=== PATIENT | male | born 1970 | race Caucasian/White ===

== ENCOUNTER 2020-09-12 14:00 | Inpatient (IN) | payer SELFPAY ==
[~2020-09-12] VITALS: Ht 180.3 cm; Wt 75.9 kg
--- NOTE | 2020-09-12 14:13 | PHYS DOC ---
Past History Past Medical History: CAD, Heart Disease, Hypertension Smoking: Cigarettes Alcohol Use: Rarely Drug Use: Amphetamine, Cocaine, Heroin, Marijuana, Methamphetamine Adult General Chief Complaint Chief Complaint: CHEST PAIN HPI HPI Patient is a 50yo male presenting for chest pain. This is an acute on chronic problem. Onset was ~6 months ago without inciting event or trauma. Nothing known makes better, activity makes worse. Pain is deep in left breast and radiates to LUE causing numbness. Episodes last <1min but take his breath away when they occur. These episodes wax and wane since onset, typically admits <3 episodes daily but admits he has had increased frequency of episodes daily currently averaging ~5-10 daily for past 1 month. He has been taking 81mg ASA intermittently and using a friend's Coreg 25mg BID when he can "get my hands on it". 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 He admits positive cardiac family history of CAD, has never passed out which activity/exertion, had x3 stents placed ~7 years ago in [place] to unknown heart vessels. He does admit to history of IVDU. Admits using "everything" such as meth, heroin and cocaine in the past, has not used anything in +10 years, admits social ETOH use, daily cigarette smoking and occasional THC only. Review of Systems Review of Systems Fourteen body systems of review of systems have been reviewed. See HPI for pertinent positives and negative responses, other [place] all other systems are negative, non-pertinent or non-contributory Physical Exam Physical Exam Constitutional: Well developed, well nourished, no acute distress, non-toxic appearance. HENT: Normocephalic, atraumatic, bilateral external ears normal, oropharynx dry with poor dentition, no oral exudates, nose normal. Eyes: PERRLA, EOMI, conjunctiva normal, no discharge. Neck: Normal range of motion, no tenderness, supple, no stridor. Cardiovascular: Heart rate regular, sinus rhythm, no rubs or gallops, chest wall non-tender to palpation Lungs & Thorax: Bilateral breath sounds clear to auscultation Abdomen: Bowel sounds normal, soft, no tenderness, no masses, no pulsatile masses. Nonsurgical abdomen, no peritoneal signs Skin: Warm, dry, no erythema, no rash. Back: No tenderness, no CVA tenderness. Extremities: No tenderness, no cyanosis, no clubbing, ROM intact, no edema. Pulses 2+ in bilateral UEs Neurologic: Alert and oriented X 3, grossly normal motor & sensory function, no focal deficits noted. Psychologic: Affect normal, judgement normal, anxious mood Current Patient Data Vital Signs Vital Signs Date Time Temp Pulse Resp B/P (MAP) Pulse Ox O2 Delivery O2 Flow Rate FiO2 09/12/20 19:40 Room Air 09/12/20 17:34 69 20 99 09/12/20 16:55 97.7 187/99 (128) Lab Results Laboratory Tests Test 09/12/20 14:23 09/12/20 15:38 White Blood Count 9.3 x10^3/uL (4.0-11.0) Red Blood Count 4.71 x10^6/uL (4.30-5.70) Hemoglobin 14.5 g/dL (13.0-17.5) Hematocrit 43.6 % (39.0-53.0) Mean Corpuscular Volume 93 fL (79-100) Mean Corpuscular Hemoglobin 31 pg (25-35) Mean Corpuscular Hemoglobin Concent 33 g/dL (31-37) Red Cell Distribution Width 13.9 % (11.5-14.5) Platelet Count 242 x10^3/uL (140-400) Neutrophils (%) (Auto) 65 % (31-73) Lymphocytes (%) (Auto) 25 % (24-48) Monocytes (%) (Auto) 7 % (0-9) Eosinophils (%) (Auto) 2 % (0-3) Basophils (%) (Auto) 1 % (0-3) Neutrophils # (Auto) 6.1 x10^3uL (1.8-7.7) Lymphocytes # (Auto) 2.3 x10^3/uL (1.0-4.8) Monocytes # (Auto) 0.7 x10^3/uL (0.0-1.1) Eosinophils # (Auto) 0.2 x10^3/uL (0.0-0.7) Basophils # (Auto) 0.1 x10^3/uL (0.0-0.2) Sodium Level 140 mmol/L (136-145) Potassium Level 3.7 mmol/L (3.5-5.1) Chloride Level 102 mmol/L (98-107) Carbon Dioxide Level 29 mmol/L (21-32) Anion Gap 9 (6-14) Blood Urea Nitrogen 18 mg/dL (8-26) Creatinine 1.5 mg/dL (0.7-1.3) Estimated GFR (Cockcroft-Gault) 49.7 BUN/Creatinine Ratio 12 (6-20) Glucose Level 138 mg/dL (70-99) Calcium Level 9.2 mg/dL (8.5-10.1) Total Bilirubin 0.8 mg/dL (0.2-1.0) Aspartate Amino Transf (AST/SGOT) 9 U/L (15-37) Alanine Aminotransferase (ALT/SGPT) 16 U/L (16-63) Alkaline Phosphatase 110 U/L (46-116) Troponin I Quantitative 0.065 ng/mL (0-0.055) WT-Ovl-I-Type Natriuretic Peptide 1113 pg/mL (0-124) Total Protein 7.0 g/dL (6.4-8.2) Albumin 3.7 g/dL (3.4-5.0) Albumin/Globulin Ratio 1.1 (1.0-1.7) Urine Collection Type Unknown Urine Color Yellow Urine Clarity Clear Urine pH 6.5 Urine Specific Dixon 1.025 Urine Protein 100 mg/dl (NEG-TRACE) Urine Glucose (UA) 100 mg/dL (NEG) Urine Ketones (Stick) Neg mg/dL (NEG) Urine Blood Neg (NEG) Urine Nitrite Neg (NEG) Urine Bilirubin Neg (NEG) Urine Urobilinogen Dipstick 1.0 mg/dL (0.2 mg/dL) Urine Leukocyte Esterase Neg (NEG) Urine RBC 0 /HPF (0-2) Urine WBC Rare /HPF (0-4) Urine Squamous Epithelial Cells None /LPF Urine Bacteria 0 /HPF (0-FEW) Urine Opiates Screen Neg (NEG) Urine Methadone Screen Neg (NEG) Urine Barbiturates Neg (NEG) Urine Phencyclidine Screen Neg (NEG) Urine Amphetamine/Methamphetamine Neg (NEG) Urine Benzodiazepines Screen Neg (NEG) Urine Cocaine Screen Neg (NEG) Urine Cannabinoids Screen Pos (NEG) Urine Ethyl Alcohol Neg (NEG) EKG EKG EKG ordered and interpreted by myself at 1412 hrs. as sinus rhythm at 72 bpm, u nremarkable intervals, left axis deviation with left ventricular strain, nonspecific T wave changes in leads III and aVF, T wave inversions noted in leads V4 and V5, no STEMI Radiology/Procedures Radiology/Procedures PROCEDURE: PORTABLE CHEST 1V AP chest. HISTORY: Chest pain AP view was taken of the chest. Lungs are clear. Heart is normal in size. There is no pleural effusion. IMPRESSION: 1. No acute chest disease. Electronically signed by: Rl Lord MD (09/12/2020 2:49 PM) [facility] [place] Heart Score HEART Score for Chest Pain: HEART Score for Chest Pain Response (Comments) Value History Highly Suspicious [address] Depression 2 Age >45 - < 65 1 Risk Factors >3 Risk Factors or Hx CAD 2 Troponin >1-<3x Normal Limit 1 Total 8 Risk Factors: Risk Factors: DM, Current or recent (<one month) smoker, HTN, HLP, family history of CAD, obesity. Risk Scores: Risk Factors: DM, Current or recent (<one month) smoker, HTN, HLP, family history of CAD, obesity. Course & Med Decision Making Course & Med Decision Making Airway patient, breathing non-labored, vitals showing marked HTN Comprehensive physical exam obtained and subsequent diagnostic workup performed. Pertinent Labs and Imaging studies reviewed. (See chart for details) Discussed most likely diagnosis of HTN Emergency given presenting BP and fin dings of cardiac ischemia (inferior t-wave inversions and lateral V4 and V5 ST depression). Elevated trop likely due to this. 162mg ASA and x1 SL Nitro administered on arrival with improvement in patient's BP. Cardiology contacted and case discussed. They agreed with management so far. Lovenox 1mg/kg administered. Patient to be started on high-intensity statin, b- rema and daily 81mg aspirin. They will see him tomorrow morning Dr. Fletcher (hospitalist) contacted and he agreed to admission under his care for continued cardiac observation with serial trop & ECGs in addition to BP control as indicated I updated patient on plan of care and he was amenable to admission. All questions and concerns addressed prior to ED departure to [place] in stable condition Zurdo Disclaimer Zurdo Disclaimer This electronic medical record was generated, in whole or in part, using a voice recognition dictation system. Departure Departure: Impression: Primary Impression: Hypertensive emergency Additional Impressions: Elevated troponin CAD (coronary artery disease) History of illicit drug use Disposition: ADMITTED INPT THIS HOSP Admitting Physician: Anupam Fletcher Condition: STABLE Referrals: PCP,NO (PCP) Problem Qualifiers JOHNNY VELASCO DO Sep 12, 2020 14:12
[2020-09-12] MEDS ORDERED: ASPIRIN CHEWABLE 81 MG TABLET. PO ONE (14:30)
[2020-09-12] MEDS ORDERED: NITROGLYCERIN SUBLINGUAL 0.4 MG BOTTLE OF 25. SL PRN ×2 (14:45→16:00)
[2020-09-12 14:48] LABS: BASO # 0.1 x10^3/uL (0.0-0.2); BASO % 1 % (0-3); EOS # 0.2 x10^3/uL (0.0-0.7); EOS % 2 % (0-3); HEMATOCRIT 43.6 % (39.0-53.0); HEMOGLOBIN 14.5 g/dL (13.0-17.5); LYMPH # 2.3 x10^3/uL (1.0-4.8); LYMPH % 25 % (24-48); MEAN CORPUSCULAR HEMOGLOBIN 31 pg (25-35); MEAN CORPUSCULAR HGB CONC 33 g/dL (31-37); MEAN CORPUSCULAR VOLUME 93 fL (79-100); MONO # 0.7 x10^3/uL (0.0-1.1); MONO % 7 % (0-9); NEUT # 6.1 x10^3uL (1.8-7.7); NEUT % 65 % (31-73); PLATELET COUNT 242 x10^3/uL (140-400); RED BLOOD COUNT 4.71 x10^6/uL (4.30-5.70); RED CELL DISTRIBUTION WIDTH 13.9 % (11.5-14.5); WHITE BLOOD COUNT 9.3 x10^3/uL (4.0-11.0)
--- NOTE | 2020-09-12 14:52 | RAD ---
AP chest. HISTORY: Chest pain AP view was taken of the chest. Lungs are clear. Heart is normal in size. There is no pleural effusion. IMPRESSION: 1. No acute chest disease. Electronically signed by: Rl Lord MD (09/12/2020 2:49 PM) [facility]
[2020-09-12 14:57] LABS: CALCIUM 9.2 mg/dL (8.5-10.1); CREATININE 1.5 mg/dL (0.7-1.3); GFR 49.7; POTASSIUM 3.7 mmol/L (3.5-5.1)
[2020-09-12 15:11] LABS: ALBUMIN 3.7 g/dL (3.4-5.0); ALBUMIN/GLOBULIN RATIO 1.1 (1.0-1.7); TOTAL BILIRUBIN 0.8 mg/dL (0.2-1.0)
[2020-09-12] MEDS ORDERED: ENOXAPARIN ** NOTE DOSE ** SYRINGE SQ ONE (15:30)
[2020-09-12 16:04] LABS: BARBITURATES NEG (NEG); BENZODIAZEPINES NEG (NEG); CANNABINOIDS POS (NEG); COCAINE NEG (NEG); METHADONE NEG (NEG); OPIATES NEG (NEG); PHENCYCLIDINE NEG (NEG)
[2020-09-12 16:06] LABS: BILIRUBIN,URINE NEG (NEG); CLARITY,URINE CLEAR; COLOR,URINE YELLOW; GLUCOSE,URINE 100 mg/dL (NEG); NITRITE,URINE NEG (NEG)
[2020-09-12 16:07] LABS: BACTERIA,URINE 0 /HPF (0-FEW); RBC,URINE 0 /HPF (0-2); WBC,URINE RARE /HPF (0-4)
[2020-09-12 16:08] LABS: AMPHETAMINE/METHAMPHETAMINE NEG (NEG)
--- NOTE | 2020-09-12 16:46 | EKG ---
[address] [address] Test Date: 2020-09-12 Test Time: 14:08:16 Pat Name: RAMÍREZ ROCHA Department: Room: 117 A Gender: M Telephone Operator: : 1970 Requested By: JOHNNY VELASCO Order Number: [id number] Reading MD: Jose Blanchard Measurements Intervals [place] Rate: 72 P: 41 [place]: 160 QRS: -11 QRSD: 92 T: -22 QT: 360 QTc: 396 Interpretive Statements SINUS RHYTHM LEFT ATRIAL ABNORMALITY LEFTWARD AXIS ST & T ABNORMALITY, CONSIDER INFERIOR ISCHEMIA OR LEFT VENTRICULAR STRAIN ABNORMAL ECG RI6.02 No previous ECG available for comparison Electronically Signed On 09-15-2020 10:48:49 SUCTION OPERATOR by Jose Blanchard
[2020-09-12 16:55] VITALS: BP 187/99
[2020-09-12] MEDS: CARVEDILOL 12.5 MG TABLET PO SCH (17:00)
[2020-09-12] MEDS ORDERED: CARVEDILOL 12.5 MG TABLET PO SCH (17:00)
[2020-09-12 19:20] VITALS: BP 155/90
[2020-09-12] MEDS ORDERED: ATORVASTATIN CALCIUM 20 MG TABLET PO SCH ×2 (21:00)
[2020-09-12 23:36] VITALS: BP 175/101
[2020-09-13 05:10] VITALS: BP 171/103
--- NOTE | 2020-09-13 06:59 | EKG ---
[address] [address] Test Date: 2020-09-13 Test Time: 06:53:02 Pat Name: RAMÍREZ ROCHA Department: Room: 117 A Gender: M Room Inspector: : 1970 Requested By: JOHNNY VELASCO Order Number: [id number] Reading MD: Jose Blanchard Measurements Intervals [place] Rate: 43 P: 27 [place]: 168 QRS: -7 QRSD: 92 T: -18 QT: 470 QTc: 398 Interpretive Statements SINUS BRADYCARDIA LEFTWARD AXIS T ABNORMALITY IN ANTERIOR LEADS INFEROLATERAL LEADS ABNORMAL ECG Electronically Signed On 09-15-2020 10:37:47 PEACE OFFICER by Jose Blanchard
[2020-09-13] MEDS: CARVEDILOL 12.5 MG TABLET PO SCH (08:00)
[2020-09-13] MEDS ORDERED: ASPIRIN ENTERIC COATED 81 MG TABLET.DR. PO SCH (08:00)
[2020-09-13 08:16] VITALS: BP 171/103
[2020-09-13] MEDS ORDERED: ISOSORBIDE MONONITRATE ER 30 MG TAB.ER.24H PO SCH ×2 (09:00)
--- NOTE | 2020-09-13 10:27 | HP ---
ADMIT DATE: 09/12/2020 ATTENDING PHYSICIAN: Dr. Zhang. CHIEF COMPLAINT: Chest pain. HISTORY OF PRESENT ILLNESS: The patient is a 50-year-old gentleman with known history of heart disease. He complains of left-sided muscle pain with some shortness of breath. He has a known history of coronary artery disease, but has been noncompliant with meds. He has been taking aspirin and intermittently using a friend's Coreg 25 mg b.i.d. He has no PCP. He admits prior Cardiology evaluation while living in [place]. He had 3 stents placed 7 years ago, unclear as to what vessels were the anatomy. Unfortunately, he continues to abuse amphetamine, cocaine, heroin, marijuana and crystal meth. He is also a smoker and he drinks alcohol on a regular basis. PAST MEDICAL HISTORY: Significant for hypertension, heart disease, noncompliance and polysubstance abuse. ALLERGIES: He has no known drug allergies. FAMILY HISTORY: Unobtainable. REVIEW OF SYSTEMS: Unremarkable for any COVID exposure, fevers, chills, cough, congestion. His pain had subsided by the time I saw him. All other systems reviewed and turned to be negative. PHYSICAL EXAMINATION: GENERAL: When I saw him, this is a gentleman who is pretty fairly well-developed. VITAL SIGNS: Initial blood pressure was 170/100, pulse was 75 and regular, temperature 98.0 degrees Fahrenheit, oxygen saturation 97% on room air. HEENT: Head is without trauma. Pupils are reactive. Sclerae nonicteric. Oropharynx is clear. NECK: Supple, no bruits identified. LUNGS: Clear. CARDIOVASCULAR: Showed regular heart tones. No gallops. ABDOMEN: Soft, no guarding, rebound tenderness. Normoactive bowel sounds. EXTREMITIES: Show no cyanosis or edema. NEUROLOGIC: Focally intact. Speech is fluent. SKIN: Warm and dry. PERTINENT LABORATORY STUDIES: Initial blood work showed a troponin of 0.06. Creatinine is 1.5 mg percent. Electrolytes within normal range. Hemoglobin is 14.5 grams, white count 9300. Chest x-ray in the ED showed no active disease process. Clear lung andrade, normal heart size. ASSESSMENT: 1. A 50-year-old gentleman with chest pain. He probably has some stress demand ischemia. He also has polysubstance abuse contributing to the pain. 2. Known coronary artery disease with previous stents. He has been noncompliant regarding his followup and medication. 3. Polysubstance abuse. 4. Essential hypertension. PLAN: 1. Admit to the inpatient unit observation status. 2. Serial cardiac enzymes. 3. We will restart his Coreg and aspirin. 4. Diet as tolerated. SIMÓN ZHANG MD DR: AURORA/colten JOB#: [id number] / [id number]
--- NOTE | 2020-09-13 13:47 | DS ---
DATE OF DISCHARGE: 09/13/2020 ATTENDING PHYSICIAN: Dr. Zhang. FINAL DISCHARGE DIAGNOSES: 1. Chest pain. 2. Slight elevation of troponin without any sequelae of symptoms that resolved. 3. Polysubstance abuse. 4. Essential hypertension. 5. Noncompliance of meds. HISTORY AND PHYSICAL: This is a 50-year-old gentleman admitted through the ED with vague symptoms of left-sided chest pain subsided after he got here, he was given nitrates and beta-blockers. He has been noncompliant with meds. He has a known history of coronary artery disease with previous stent 7 years ago. He has not been compliant. He has been taking his meds. PHYSICAL EXAMINATION: Please see the dictated note. PERTINENT LABORATORY AND X-RAY STUDIES: CBC and chemistry panel was unremarkable. The first set of cardiac enzymes was reported as 0.06, second one 0.08. He had no specific EKG changes. There are nonspecific in nature and his chest x-ray was entirely clear. COURSE IN THE HOSPITAL: The patient was admitted. We started aspirin, beta-blockers and nitrates. He did well. He had no further pain. By the second hospital day, his vital signs were stable. We discussed the nature of his elevation of enzymes, which is a small myocardial infarction, but due to his drug indiscretion. He wanted to go home. I felt this is reasonable. He did not want to wait to see the billet sawyer. Therefore, I wrote scripts for Coreg 25 mg p.o. b.i.d., I recommended an aspirin 81 mg tablet daily. I also gave him a script for p.r.n. nitroglycerin if he wants to get this filled. He should follow up with her regular physician. I gave him 6 month supply of beta-blockers with refills. Strong encouragement to avoid further alcohol, tobacco, marijuana, methamphetamine, cocaine, heroin and crystal meth use whether or not he will give up his drug habit remains to be seen. He was therefore discharged in stable condition with explicit instructions and followup care. SIMÓN ZHANG MD DR: AURORA/colten JOB#: [id number] / [id number]
== END 2020-09-13 10:43 | disposition home or self-care (01) | DRG 305 ==
LOC: ER 14:00 → 1 SOUTH 15:40 → ER 16:28
PROVIDERS: ADMIT Hospitalist; ATTEND Hospitalist
DX: I16.1 Hypertensive emergency (principal); I10 Essential (primary) hypertension; F17.200 Nicotine dependence, unspecified, uncomplicated; I25.10 Atherosclerotic heart disease of native coronary artery without angina pectoris; F19.10 Other psychoactive substance abuse, uncomplicated; Z82.49 Family history of ischemic heart disease and other diseases of the circulatory system; Z91.14 Patient's other noncompliance with medication regimen; Z91.19 Patient's noncompliance with other medical treatment and regimen; Z95.5 Presence of coronary angioplasty implant and graft
CPT/HCPCS: 36415; 71045; 80053; 80307; 81001; 83880; 84484; 85025; 93005; 96372; J1650; 99285-25